=== PATIENT | female | born 1935 ===

== ENCOUNTER 2017-09-02 13:15 | Inpatient (IN) | payer OTHER ==
[~2017-09-02] VITALS: Ht 162.6 cm; Wt 62.1 kg
[2017-09-10] MEDS ORDERED: INTESTINEX680 M1 PO (13:04)
[2017-09-10] MEDS ORDERED: ULTRACET PO (13:04)
== END 2017-09-10 14:13 | disposition home or self-care (01) | DRG 330 ==
LOC: O/R 09-07 06:05 → SURH 09-07 06:05
PROVIDERS: Surgery
PROC: 07TC4ZZ Resection of Pelvis Lymphatic, Percutaneous Endoscopic Approach (ICD-10-PCS; 2017-09-07)
PROC: 0DTL4ZZ Resection of Transverse Colon, Percutaneous Endoscopic Approach (ICD-10-PCS; principal; 2017-09-07 18:30)
DX: C18.4 Malignant neoplasm of transverse colon (principal); D62 Acute posthemorrhagic anemia; E03.8 Other specified hypothyroidism; E78.00 Pure hypercholesterolemia, unspecified; I11.9 Hypertensive heart disease without heart failure

== ENCOUNTER 2017-09-02 16:42 | Outpatient (CLI) | payer OTHER | END 2017-09-02 16:43 | disposition home or self-care (01) | LOC: LAB 16:42 | DX: D68.8 Other specified coagulation defects (principal) ==